=== PATIENT | female | born 1990 | race Caucasian/White ===

== ENCOUNTER 2022-05-02 12:29 | Emergency (ER) | payer BC, MEDICAID ==
[~2022-05-02] VITALS: Ht 167.6 cm; Wt 111.0 kg
[~2022-05-02 12:29] MED LIST: ALBU6.7H14 INH; ESOM40CA PO; GUAI120015 PO; LIDO20SO16 PO; NABU-139 PO; NORCO10T PO; ONDA8TAB6 PO; PROM25TA14 PO
[2022-05-02 14:45] VITALS: BP 150/105
== END 2022-05-02 14:47 | disposition home or self-care (01) ==
LOC: ER 12:29
DX: M79.662 Pain in left lower leg (principal); M25.572 Pain in left ankle and joints of left foot; G89.29 Other chronic pain; J45.909 Unspecified asthma, uncomplicated; K21.9 Gastro-esophageal reflux disease without esophagitis; Z98.890 Other specified postprocedural states; Z72.89 Other problems related to lifestyle; Z88.5 Allergy status to narcotic agent; Z88.8 Allergy status to other drugs, medicaments and biological substances; Z79.899 Other long term (current) drug therapy
CPT/HCPCS: 93971; 99284

== ENCOUNTER 2023-09-30 21:12 | Emergency (ER) | payer BC, MEDICAID ==
[~2023-09-30] VITALS: Ht 167.6 cm; Wt 96.4 kg
[2023-09-30 21:25] VITALS: BP 153/101; PULSE 96; RESP 18; TEMP 98.2; O2SAT 98
[2023-09-30 23:02] LABS: BASOPHILS # (AUTO) 0.1 X10'3 (0-0.2); BASOPHILS % (AUTO) 0.7 % (0-1); EOSINOPHILS # (AUTO) 0.2 X10'3 (0-0.9); EOSINOPHILS % (AUTO) 2.7 % (0-6); HEMATOCRIT 40.6 % (35.0-45.0); HEMOGLOBIN 13.7 g/dl (12.0-16.0); LYMPHOCYTES # (AUTO) 2.5 X10'3 (1.1-4.8); LYMPHOCYTES % (AUTO) 32.7 % (21-51); MEAN CORPUSCULAR HEMOGLOBIN 29.9 PG (27.0-31.0); MEAN CORPUSCULAR HGB CONC 33.7 g/dL (33.0-36.5); MEAN CORPUSCULAR VOLUME 88.8 FL (78-98); MEAN PLATELET VOLUME 7.4 FL (7.4-10.4); MONOCYTES # (AUTO) 0.5 X10'3 (0-0.9); NEUTROPHILS # (AUTO) 4.4 X10'3 (1.8-7.7); NEUTROPHILS % (AUTO) 56.9 % (42-75); PLATELET COUNT 350 X10'3 (140-440); RED BLOOD COUNT 4.57 X10'6 (4.20-5.60); RED CELL DISTRIBUTION WIDTH 12.5 % (11.5-14.5); WHITE BLOOD COUNT 7.7 X10'3 (4.5-11.0)
[2023-09-30 23:10] LABS: APTT 29 SECONDS (22-32); INR 0.9 INR; PROTHROMBIN TIME 10.1 SECONDS (9.0-12.0)
[2023-09-30 23:14] LABS: ALANINE AMINOTRANSFERASE 23 U/L (12-78); ALBUMIN 3.6 G/DL (3.4-5.0); ALBUMIN/GLOBULIN RATIO 0.9 (1.1-1.5); ALKALINE PHOSPHATASE 102 IU/L (46-116); ANION GAP 13 (8-16); ASPARTATE AMINO TRANSFERASE 21 U/L (10-37); BILIRUBIN,TOTAL 0.2 MG/DL (0.1-1.0); BLOOD UREA NITROGEN 13 MG/DL (7-18); BUN/CREATININE RATIO 15.3 (10.0-20.0); CALCIUM 7.7 MG/DL (8.5-10.1); CHLORIDE 105 MMOL/L (99-107); CREATININE 0.85 MG/DL (0.40-0.90); GLUCOSE 90 MG/DL (70-104); LIPASE 29 U/L (16-77); SODIUM 141 MMOL/L (135-145); TOTAL CARBON DIOXIDE 23.4 MMOL/L (24-32); TOTAL PROTEIN 7.4 G/DL (6.4-8.2); eCRCL 89 ML/MIN; eGFR 78 ML/MIN
[2023-09-30 23:17] LABS: HCG SERUM QL NEGATIVE
[2023-10-01] MEDS ORDERED: DICY20TA17 PO (00:22)
[2023-10-01] MEDS ORDERED: ONDA4TAB12 PO (00:22)
[2023-10-01] MEDS: HYDROcodone/acetaminophen 10/325mg tab PO ONE (01:55)
[2023-10-01] MEDS: ondansetron 4mg rapidly disintigrating tab PO ONE (01:55)
[2023-10-01] MEDS: ketorolac trometh inj. 60 MG/2 ML VIAL IM ONE (01:56)
== END 2023-10-01 02:06 | disposition home or self-care (01) ==
LOC: ER 21:12
DX: K59.00 Constipation, unspecified (principal); K76.0 Fatty (change of) liver, not elsewhere classified; R10.13 Epigastric pain; K21.9 Gastro-esophageal reflux disease without esophagitis; J45.909 Unspecified asthma, uncomplicated; Z88.8 Allergy status to other drugs, medicaments and biological substances; Z91.041 Radiographic dye allergy status; Z79.899 Other long term (current) drug therapy
CPT/HCPCS: 36415; 74176; 80053; 83690; 84703; 85025; 85610; 85730; 96372; 99285; J1885

== ENCOUNTER 2024-02-25 12:15 | Outpatient (CLI) | payer BC, MEDICAID ==
[2024-02-25] VITALS (21 sets, daily range): BP systolic 125–163; BP diastolic 75–121; PULSE 78–109
[~2024-02-25 12:15] MED LIST changes: +DICY20TA17 PO; +ONDA-243 PO
== END 2024-02-25 23:59 | disposition home or self-care (01) ==
LOC: CARD DIAG 12:15
PROVIDERS: ATTEND Internal Medicine Interventional Cardiology
DX: R55 Syncope and collapse (principal)
CPT/HCPCS: 93660

== ENCOUNTER 2024-10-22 17:21 | Emergency (ER) | payer BC, MEDICAID ==
[~2024-10-22] VITALS: Ht 167.6 cm; Wt 107.8 kg
[2024-10-22 17:49] VITALS: TEMP 97.7
[2024-10-22 18:36] LABS: BASOPHILS # (AUTO) 0.1 X10'3 (0-0.2); BASOPHILS % (AUTO) 0.9 % (0-1); EOSINOPHILS # (AUTO) 0.3 X10'3 (0-0.9); EOSINOPHILS % (AUTO) 3.6 % (0-6); HEMATOCRIT 43.3 % (35.0-45.0); HEMOGLOBIN 14.6 g/dl (12.0-16.0); LYMPHOCYTES # (AUTO) 1.8 X10'3 (1.1-4.8); LYMPHOCYTES % (AUTO) 24.8 % (21-51); MEAN CORPUSCULAR HEMOGLOBIN 30.3 PG (27.0-31.0); MEAN CORPUSCULAR HGB CONC 33.8 g/dL (33.0-36.5); MEAN CORPUSCULAR VOLUME 89.7 FL (78-98); MEAN PLATELET VOLUME 7.1 FL (7.4-10.4); MONOCYTES # (AUTO) 0.5 X10'3 (0-0.9); MONOCYTES % (AUTO) 6.7 % (2-12); NEUTROPHILS # (AUTO) 4.5 X10'3 (1.8-7.7); PLATELET COUNT 333 X10'3 (140-440); RED BLOOD COUNT 4.82 X10'6 (4.20-5.60); RED CELL DISTRIBUTION WIDTH 12.8 % (11.5-14.5); WHITE BLOOD COUNT 7.1 X10'3 (4.5-11.0)
[2024-10-22 18:46] LABS: ALANINE AMINOTRANSFERASE 35 U/L (12-78); ALBUMIN 3.9 G/DL (3.4-5.0); ALKALINE PHOSPHATASE 137 IU/L (46-116); ANION GAP 9 (8-16); ASPARTATE AMINO TRANSFERASE 25 U/L (10-37); BILIRUBIN,TOTAL 0.3 MG/DL (0.1-1.0); BLOOD UREA NITROGEN 8 MG/DL (7-18); BUN/CREATININE RATIO 9.5 (10.0-20.0); CALCIUM 8.3 MG/DL (8.5-10.1); CHLORIDE 107 MMOL/L (99-107); CREATININE 0.84 MG/DL (0.40-0.90); GLUCOSE 118 MG/DL (70-104); POTASSIUM 3.9 MMOL/L (3.5-5.1); SODIUM 140 MMOL/L (135-145); TOTAL CARBON DIOXIDE 23.9 MMOL/L (24-32); TOTAL PROTEIN 7.9 G/DL (6.4-8.2); eCRCL 89 ML/MIN; eGFR 78 ML/MIN
[2024-10-22 18:53] LABS: PRO BRAIN NATRIURETIC PEPTIDE < 30 PG/ML (0-125)
[2024-10-22] MEDS: LORazepam 1 MG tablet PO ONE (19:04)
[2024-10-22] MEDS: ketorolac trometh 30MG/ML vial 30 MG/ML VIAL IM ONE (19:05)
[2024-10-22 19:54] VITALS: BP 143/96; PULSE 92; RESP 16; O2SAT 100
== END 2024-10-22 20:03 | disposition home or self-care (01) ==
LOC: ER 17:22
DX: K21.9 Gastro-esophageal reflux disease without esophagitis (principal); J45.909 Unspecified asthma, uncomplicated; Z88.5 Allergy status to narcotic agent; Z88.8 Allergy status to other drugs, medicaments and biological substances; Z79.899 Other long term (current) drug therapy; Z72.89 Other problems related to lifestyle
CPT/HCPCS: 36415; 71045; 80053; 83880; 84484; 85025; 93005; 96372; 99285; J1885